=== PATIENT | male | born 1980 | race Asian ===

== ENCOUNTER 2020-10-05 16:19 | Emergency (ER) | payer BC ==
[2020-10-05] MEDS ORDERED: ONDANSETRON 4 MG/2 ML VIAL ONE (18:54)
[2020-10-05] MEDS ORDERED: MORPHINE 4 MG/ML SYR ONE (18:54)
--- NOTE | 2020-10-05 19:08 | RAD REPORT ---
EXAM DESCRIPTION: CT - Neck Angio - 10/05/2020 6:58 pm CLINICAL HISTORY: neck pain, C4 compression fracture on outside report, bilateral hand numbness and tingling TECHNIQUE: During dynamic enhancement using nonionic IV contrast, axial 2 mm thick images of the nec k were obtained. Sagittal and axial reconstruction images were generated using MIP technique and revi ewed. All CT scans are performed using dose optimization technique as appropriate and may include automated exposure control or mA/KV adjustment according to patient size. COMPARISON: None FINDINGS: No aneurysm or vascular malformation identified. No carotid or vertebral dissection. No aortic arch or great vessel origin abnormality seen. Vertebral artery origins unremarkable as well . No stenosis, vasculitis or other significant carotid artery finding. No focal abnormality of either vertebral artery. Basilar artery is normal. IMPRESSION: Negative CT angio neck examination.
--- NOTE | 2020-10-05 19:17 | RAD REPORT ---
EXAM DESCRIPTION: CT - C Spine Wo Con - 10/05/2020 6:58 pm CLINICAL HISTORY: Neck pain, history of fracture on outside report COMPARISON: No remote imaging, no outside imaging TECHNIQUE: Axial 2 mm thick images of the cervical spine were obtained with sagittal and coronal rec onstruction images generated and reviewed. All CT scans are performed using dose optimization technique as appropriate and may include automated exposure control or mA/KV adjustment according to patient size. FINDINGS: Transverse fracture is present through the C3 body with retropulsion of the superior porti on of the fracture fragment. This retropulsion causes spinal stenosis down to 7 mm. Cord cannot be as sessed due to inherent central canal limitations on CT imaging. C3 pedicles are intact. There is wide cecilia of the facet joints indicating ligamentous disruption but no fracture of a facet joint. C3 spino us processes intact. Overall body height of C3 is preserved. C4-5 disc space narrowing is present wit h posterior endplate spurring. No other fracture changes identified. No fracture or acute bony abnorm ality. No paraspinal mass or hematoma. Central canal detail is inherently limited on CT imaging. IMPRESSION: Transverse fracture is present through the C3 body with retropulsion of the superior por tion of the cervical vertebral body. Retropulsion results in spinal stenosis to 7 mm. Widening of the C3-4 facet joints indicating ligamentous disruption but no posterior element fracture .
--- NOTE | 2020-10-05 20:17 | ER ---
Nurse's Notes [facility] Name: Milton Gore Age: 40 yrs Sex: Male : 1980 Arrival Date: 10/05/2020 Time: 16:20 Bed 24 Private MD: Diagnosis: Cervical Fracture Presentation: 10/05 16:58 Chief complaint: Patient states: dealing with neck pain/shoulder pain for about 4 em weeks, had x-ray done and the report reads C4 anterior compression fracture, pt also numbness and tingling in jenny. hands, pt denies any trauma. Coronavirus screen: Client denies travel out of the [place] in the last 14 days. Ebola Screen: Patient negative for fever greater than or equal to 101.5 degrees Fahrenheit, and additional compatible Ebola Virus Disease symptoms Patient denies exposure to infectious person. Patient denies travel to an Ebola-affected area in the 21 days before illness onset. No symptoms or risks identified at this time. Initial Sepsis Screen: Does the patient meet any 2 criteria? No. Patient's initial sepsis screen is negative. Does the patient have a suspected source of infection? No. Patient's initial sepsis screen is negative. Risk Assessment: Do you want to hurt yourself or someone else? Patient reports no desire to harm self or others. Onset of symptoms was October 05, 2020. 16:58 Method Of Arrival: Ambulatory em 16:58 Acuity: LAUREN 3 em Historical: - Allergies: 17:05 No Known Allergies; em - PMHx: 17:05 None; em - PSHx: 17:05 None; em - Immunization history:: Adult Immunizations up to date. - Social history:: Smoking status: Patient denies any tobacco usage or history of. Screenin:47 Abuse screen: Denies threats or abuse. Nutritional screening: No deficits noted. jd3 Tuberculosis screening: No symptoms or risk factors identified. Fall Risk Ambulatory Aid- None/Bed Rest/Nurse Assist (0 pts). Gait- Normal/Bed Rest/Wheelchair (0 pts) Mental Status- Oriented to own ability (0 pts). Total Gould Fall Scale indicates No Risk (0-24 pts). Assessment: 18:46 General: Appears in no apparent distress. uncomfortable, Behavior is calm, cooperative, jd3 appropriate for age. Pain: Complains of pain in back of neck Quality of pain is described as aching, shooting, tender. Neuro: Level of Consciousness is awake, alert, obeys commands, Oriented to person, place, time, situation. Cardiovascular: Denies chest pain, Capillary refill < 3 seconds Patient's skin is warm and dry. Respiratory: Airway is patent Respiratory effort is even, unlabored, Respiratory pattern is regular, symmetrical, Denies cough, shortness of breath. GI: No signs and/or symptoms were reported involving the gastrointestinal system. : No signs and/or symptoms were reported regarding the genitourinary system. EENT: No signs and/or symptoms were reported regarding the EENT system. Derm: Skin is intact, Skin is dry, Skin is normal, Skin temperature is warm. Musculoskeletal: Circulation, motion, and sensation intact. Range of motion: intact in all extremities. 19:19 Reassessment: Patient and/or family updated on plan of care and expected duration. Pain jd3 level reassessed. Patient is alert, oriented x 3, equal unlabored respirations, skin warm/dry/pink. pt reporting pain is decreased with the pain medication that was given. 20:44 Reassessment: Patient appears in no apparent distress at this time. Patient and/or jd3 family updated on plan of care and expected duration. Pain level reassessed. Patient is alert, oriented x 3, equal unlabored respirations, skin warm/dry/pink. awaiting transfer. 21:31 Reassessment: Patient appears in no apparent distress at this time. Patient and/or jd3 family updated on plan of care and expected duration. Pain level reassessed. Patient is alert, oriented x 3, equal unlabored respirations, skin warm/dry/pink. report called to Yuly MODI at [facility]. 22:45 Reassessment: Patient appears in no apparent distress at this time. Patient and/or jd3 family updated on plan of care and expected duration. Pain level reassessed. Patient is alert, oriented x 3, equal unlabored respirations, skin warm/dry/pink. report given to [facility]. Vital Signs: 16:58 BP 150 / 102; Pulse 81; Resp 18; Temp 98.7; Pulse Ox 99% on R/A; Weight 65.77 kg; em Height 5 ft. 6 in. (167.64 cm); Pain 9/10; 20:44 BP 138 / 97; Pulse 70; Resp 18 S; Pulse Ox 100% on R/A; jd3 22:47 BP 124 / 87; Pulse 71; Resp 17 S; Pulse Ox 100% on R/A; jd3 16:58 Body Mass Index 23.40 (65.77 kg, 167.64 cm) em ED Course: 16:20 Patient arrived in ED. ag5 17:04 Triage completed. em 17:05 Arm band placed on. em 17:19 Jeronimo Sanchez PA is PHCP. jmm 17:19 Justo Coelho MD is Attending Physician. jmm 17:20 Rigid cervical collar applied. em 17:56 Inserted saline lock: 20 gauge in right antecubital area, using aseptic technique. 3 18:26 Cristian Augustine, RN is Primary Nurse. jd3 18:47 Patient has correct armband on for positive identification. Bed in low position. Call jd3 light in reach. Side rails up X 1. Adult w/ patient. Pulse ox on. NIBP on. 18:58 CT Neck Angio In Process Unspecified. EDMS 18:58 CT C Spine In Process Unspecified. EDMS 19:37 Initiated transfer with Ameena at [facility]. tt3 19:54 Ameena called back with Dr. Munguia to speak with GIUSEPPE Quezada, regarding the transfer tt3 request. 22:45 No provider procedures requiring assistance completed. Patient transferred, IV remains jd3 in place. Administered Medications: 18:45 Drug: morphine 4 mg Route: IVP; Site: right antecubital; jd3 19:45 Follow up: Response: No adverse reaction; RASS: Alert and Calm (0) jd3 18:45 Drug: Zofran (Ondansetron) 4 mg Route: IVP; Site: right antecubital; jd3 19:45 Follow up: Response: No adverse reaction jd3 Outcome: 20:17 ER care complete, transfer ordered by . [facility] 22:47 Transferred by ground EMS to [facility], Transfer form completed. jd3 X-rays sent w/ patient. 22:47 Condition: stable 22:47 Instructed on the need for transfer, Demonstrated understanding of instructions. 22:48 Patient left the ED. jd3 Signatures: Dispatcher [employer] Jeronimo Jung PA PA jmm Munoz, Edgar, RN RN em Herrera, Deanna 3 Cristian Augustine RN RN jd3 Gaskin, Ajare 5 Vic Bucio 3 Corrections: (The following items were deleted from the chart) 21:31 21:31 Reassessment: report called to Yuly MODI at [facility] julian jd3
--- NOTE | 2020-10-05 20:17 | EDPHYS ---
Physician Documentation [facility] Name: Milton Gore Age: 40 yrs Sex: Male : 1980 Arrival Date: 10/05/2020 Time: 16:20 Bed 24 Private MD: ED Physician Justo Coelho HPI: 10/05 18:18 This 40 yrs old Male presents to ER via Ambulatory with complaints of Neck jmm Injury, Shoulder Pain. 18:18 The patient or guardian complains of an injury, pain. Onset: The symptoms/episode jmm began/occurred gradually, 5 week(s) ago. This is a 40 year old male with no chronic medical conditions that presents to the ED with complaints of neck pain which has been ongoing for the past 5 weeks. Initial pain developed after a round of golf. Patient states pain was not relieved with prescribed steroids. Patient states he visited a chiropractor last week and yesterday. Patient states he developed increased pain after the most recent manipulation with tingling to the hands. . Historical: - Allergies: 17:05 No Known Allergies; em - PMHx: 17:05 None; em - PSHx: 17:05 None; em - Immunization history:: Adult Immunizations up to date. - Social history:: Smoking status: Patient denies any tobacco usage or history of. ROS: 18:18 Constitutional: Negative for fever, chills, and weight loss, Cardiovascular: Negative jmm for chest pain, palpitations, and edema, Respiratory: Negative for shortness of breath, cough, wheezing, and pleuritic chest pain. 18:18 Neck: Positive for pain. 18:18 Neuro: Positive for tingling. 18:18 All other systems are negative. Exam: 18:18 Constitutional: This is a well developed, well nourished patient who is awake, alert, jmm and in no acute distress. Head/Face: atraumatic. Eyes: EOMI, no conjunctival erythema appreciated ENT: Moist Mucus Membranes 18:18 Chest/axilla: Normal chest wall appearance and motion. Cardiovascular: Regular rate and rhythm. No edema appreciated Respiratory: Normal respirations, no respiratory distress appreciated Abdomen/GI: Non distended, soft Back: Normal ROM Skin: General appearance color normal MS/ Extremity: Moves all extremities, no obvious deformities appreciated, no edema noted to the lower extremities Neuro: Awake and alert, normal gait Psych: Behavior is normal, Mood is normal, Patient is cooperative and pleasant 18:18 Neck: C-spine: C-collar placed in ED. Vital Signs: 16:58 BP 150 / 102; Pulse 81; Resp 18; Temp 98.7; Pulse Ox 99% on R/A; Weight 65.77 kg; em Height 5 ft. 6 in. (167.64 cm); Pain 9/10; 20:44 BP 138 / 97; Pulse 70; Resp 18 S; Pulse Ox 100% on R/A; jd3 22:47 BP 124 / 87; Pulse 71; Resp 17 S; Pulse Ox 100% on R/A; jd3 16:58 Body Mass Index 23.40 (65.77 kg, 167.64 cm) em MDM: 17:45 Patient medically screened. [facility] 20:16 Data reviewed: vital signs, nurses notes. Counseling: I had a detailed discussion with [facility] the patient and/or guardian regarding: the historical points, exam findings, and any diagnostic results supporting the discharge/admit diagnosis, lab results, radiology results, the need to transfer to another facility. ED course: I discussed the patient with Dr. Munguia and Dr. Kiran whom accepted transfer. . 10/05 20:15 Order name: CBC with Diff; Complete Time: 20:51 [facility] 10/05 17:47 Order name: CT Neck Angio; Complete Time: 19:08 [facility] 10/05 17:47 Order name: CT C Spine; Complete Time: 20:45 [facility] 10/05 20:15 Order name: BMP; Complete Time: 20:58 [facility] 10/05 17:47 Order name: Saline Lock; Complete Time: 17:56 [facility] Administered Medications: 18:45 Drug: morphine 4 mg Route: IVP; Site: right antecubital; jd3 19:45 Follow up: Response: No adverse reaction; RASS: Alert and Calm (0) jd3 18:45 Drug: Zofran (Ondansetron) 4 mg Route: IVP; Site: right antecubital; jd3 19:45 Follow up: Response: No adverse reaction d3 Disposition: 10/05/20 20:[address] [facility]. Diagnosis is Cervical Fracture. - Reason for transfer: Higher level of care. - Accepting physician is Nayeli. - Condition is Stable. - Problem is new. - Symptoms are unchanged. Addendum: 10/07/2020 17:41 Co-signature as Attending Physician, Justo Coelho MD I agree with the assessment and k dr plan of care. Signatures: Dispatcher [employer] Justo Chery MD MD [facility] Jeronimo Sanchez PA PA jmm Munoz, Edgar RN RN Cristian Navarro RN RN jd3 Corrections: (The following items were deleted from the chart) 10/05 22:48 20:17 10/05/2020 20:[address] [facility]. jd3 Diagnosis is Cervical Fracture. Reason for transfer: Higher level of care. Accepting physician is Nayeli. Condition is Stable. Problem is new. Symptoms are unchanged. [facility]
[2020-10-05 20:44] LABS: Absolute Lymphocytes (CBC) 2.1 K/uL (0.7-4.9); Basophils % 0.7 % (0-1.3); Hematocrit 35.6 % (39.6-49.0); Lymphocytes % 21.9 % (15.3-44.8); MPV 6.8 fL (7.6-11.3); RBC Red Blood Cell Count 3.99 M/uL (4.33-5.43)
[2020-10-05 20:57] LABS: BUN Blood Urea Nitrogen 14 mg/dL (7-18); Bicarbonate 26 mmol/L (21-32); Glucose Level 94 mg/dL (74-106); Potassium 3.5 mmol/L (3.5-5.1); Sodium Level 140 mmol/L (136-145)
[2020-10-10 09:56] VITALS: TEMP 98.7
[2020-10-10 09:57] VITALS: O2SAT 100
[2020-10-10 09:58] VITALS: BP 124/87
== END 2020-10-05 22:48 | disposition short-term general hospital (02) ==
LOC: ER 16:19
DX: M48.52XA Collapsed vertebra, not elsewhere classified, cervical region, initial encounter for fracture (principal)
CPT/HCPCS: 85025; 80048; 36415; 82565; 72125; 70498; 96375; 96374; 99285; Q9967; J2405